=== PATIENT | female | born 1960 | race Hispanic/Latino ===

== ENCOUNTER 2022-10-20 20:58 | Emergency (ER) | payer OTHER ==
[~2022-10-20] VITALS: Ht 149.9 cm; Wt 99.8 kg
[2022-10-20] MEDS ORDERED: MUPI15C TP (23:13)
[2022-10-20] MEDS ORDERED: CYCL-309 PO (23:13)
[2022-10-20] MEDS ORDERED: IBUP-2070 PO (23:13)
[2022-10-20 23:36] VITALS: BP 140/79
[2022-10-20] MEDS ORDERED: BACITRACIN 1 EACH PACKET TP ONE (23:37)
== END 2022-10-20 23:56 | disposition home or self-care (01) ==
LOC: EDH 20:58
DX: S16.1XXA Strain of muscle, fascia and tendon at neck level, initial encounter (principal); S60.211A Contusion of right wrist, initial encounter; S60.312A Abrasion of left thumb, initial encounter; S09.90XA Unspecified injury of head, initial encounter; Z90.49 Acquired absence of other specified parts of digestive tract; V49.49XA Driver injured in collision with other motor vehicles in traffic accident, initial encounter; Y93.89 Activity, other specified; Y92.89 Other specified places as the place of occurrence of the external cause; Y99.8 Other external cause status
CPT/HCPCS: 70450; 72125; 73030; 73100; 73130